=== PATIENT | female | born 1935 | race Caucasian/White ===

== ENCOUNTER 2017-11-03 21:47 | Observation (INO) ==
--- NOTE | 2017-11-03 22:05 | Emergency Department Note ---
Disposition Clinical Impression: Dementia, Altered mental status Disposition: Transfer Short-Term Hosp Condition: Fair Referrals: Dionne Rios, SUPERVISOR [employer] [Primary Care Provider] - Forms: ED Satisfaction Letter, Work/School Release Time of Disposition: 22:55 ( will admit) General Adult HPI - General Chief complaint: ED General Medical Stated complaint: "INCREASED CONFUSION" Time Seen by Provider: 11/03/17 21:52 Source: family Mode of arrival: ambulatory Limitations: no limitations Nursing Notes Reviewed: Yes Vital Signs Reviewed: Yes - History of Present Illness HPI Narrative: 82-year-old female with history of Alzheimer's dementia, was brought in via private car. Patient apparently was found outside wandering around the streets by the Police Department. Her granddaughter reports that patient normally lives by herself, does not have anyone to be able to sit that her. She apparently last night again had episode where she was wandering outside, and the police had to be called patient has refused to take her medications and cholesterol all her medications away. Onset (ago): day(s) (2 days) Radiation: non-radiation Pain Scale: 0 Consistency: constant Improves with: nothing Worsens with: nothing - Related Data Allergies Allergy/AdvReac Type Severity Reaction Status Date / Time Penicillins [PCN] Allergy Anaphylaxis Verified 04/13/16 21:20 Limitations: ROS unobtainable due to patients medical condition (Patient has underlying Alzheimer's dementia) Past Medical History - Past Medical History Medical history: Reports: CVA, other Surgical history: Reports: appendectomy, breast surgery, cholecystectomy, hysterectomy Psychiatric history: Reports: anxiety - Social History Smoking Status: Never smoker Smokeless Tobacco Status: No Alcohol use: Reports: none Drug use: Reports: none Physical Exam - General Limitations: no limitations General appearance: alert, in no apparent distress - Head Head exam: atraumatic, normocephalic, normal inspection - Eye Eye exam: Present: normal appearance, PERRL, EOMI - Expanded Eye Exam Pupils: Left: reactive - ENT ENT exam: normal exam, normal oropharynx, mucous membranes moist - Expanded ENT Exam External ear exam: Present: normal external inspection Mouth exam: Present: normal external inspection Teeth exam: Present: normal inspection Throat exam: Present: normal inspection - Neck Neck exam: Present: normal inspection, full ROM, trachea midline - Chest Chest inspection: Present: normal inspection, symmetric chest wall rise - Respiratory Respiratory exam: Present: normal lung sounds bilaterally - Cardiovascular Cardiovascular exam: Present: regular rate, normal rhythm, normal heart sounds - Abdominal Exam Abdominal exam: Present: soft, Non-Tender. Absent: tenderness, distention, guarding, rebound, rigidity - Extremities Exam Extremities exam: Present: normal inspection, full ROM. Absent: tenderness, pedal edema - Expanded Upper Extremity Exam Shoulder exam: Present: normal inspection, full ROM Arm exam: Present: normal inspection, full ROM Elbow exam: Present: normal inspection, full ROM Forearm/Wrist exam: Present: normal inspection, full ROM Hand exam: Present: normal inspection, full ROM Vascular exam: Normal: capillary refill, radial pulse - Expanded Lower Extremity Exam Hip/Pelvis exam: Present: normal inspection, full ROM Upper leg exam: Present: normal inspection, full ROM Knee exam: Present: normal inspection, full ROM Lower leg exam: Present: normal inspection, full ROM Ankle exam: Present: normal inspection, full ROM Foot/toe exam: Present: normal inspection, full ROM Neurovascular/Tendon exam: Absent: motor deficit, sensory deficit, tendon deficit - Back Exam Back exam: Present: normal inspection, full ROM. Absent: tenderness - Neurological Exam Neurological exam: Present: alert, other (Patient will laugh and small but really is not able to answer questions appropriately.) - Expanded Neurological Exam Patient oriented to: Present: person, place, time Coma Scale Eye Opening: Spontaneous Coma Scale Motor Response: Obeys Commands Coma Scale Verbal Response: Oriented Coma Scale Total: 15 - Psychiatric Psychiatric exam: Present: normal affect, normal mood - Skin Skin exam: Present: warm, dry, intact, normal color Course Vital Signs Temperature 97.8 F 11/03/17 21:50 Pulse Rate 76 11/03/17 21:50 Respiratory Rate 16 11/03/17 21:50 Blood Pressure 165/72 11/03/17 21:50 O2 Sat by Pulse Oximetry 97 11/03/17 21:50 Temperature 97.8 F 11/03/17 21:50 Pulse Rate 75 11/03/17 23:00 Respiratory Rate 18 11/03/17 23:00 Blood Pressure 169/74 11/03/17 23:00 O2 Sat by Pulse Oximetry 97 11/03/17 23:00 Oxygen Delivery Oxygen Delivery Room Air Medical Decision Making - MDM Narrative Medical decision making narrative: Labs obtained, IV normal saline started, CT of head without contrast urine analysis chest x-ray was also obtained - Medical Records Medical records reviewed: Yes I reviewed the patient's medical records. - Lab Data Lab results reviewed: Yes I reviewed the patient's lab results. Result diagrams: 11/03/17 22:06 11/03/17 22:06 Lab Results 11/03/17 11/03/17 11/03/17 Range/Units 22:06 22:06 22:06 WBC 4.6 (4.3-11.1) K/mcL RBC 4.05 (3.82-4.97) M/mcL Hgb 12.5 (11.5-15.4) g/dL Hct 38.0 (35.3-44.9) % MCV 93.8 (83.0-100.0) fL MCH 30.9 (28.0-33.3) pg MCHC 32.9 (31.6-35.5) g/dL RDW 11.9 (11.5-14.5) % Plt Count 235 (140-400) K/mcL MPV 9.6 (9.4-12.4) fL Immature Gran % 0.2 (0-4) % Seg Neutrophils % 52.0 % Lymphocytes % 30.0 % Monocytes % 12.7 % Eosinophils % 4.2 % Basophils % 0.9 % Neutrophils # 2.4 (1.6-8.9) K/mcL Lymphocytes # 1.4 (0.6-4.6) K/mcL Monocytes # 0.6 (0.0-1.3) K/mcL Eosinophils # 0.2 (0.0-0.6) K/mcL Basophils # 0.0 (0.0-0.2) K/mcL PT 11.3 (9.4-12.1) Seconds INR 1.1 APTT 24.4 L (26.0-36.0) Seconds Sample Site ABG pH (7.32-7.45) pH Units ABG pCO2 (35-45) mmHg ABG pO2 (85-104) mmHg ABG HCO3 (21-27) mEq/L ABG Total CO2 (20-26) mEq/L ABG O2 Saturation (95-98) % ABG Base Excess (-2 to 3) mEq/L Inspired O2 (1-15=lpm mt84-238=%) Sodium 138 (136-145) mEq/L Potassium 3.9 (3.5-5.1) mEq/L Chloride 103 (98-107) mEq/L Carbon Dioxide 31 H (23-29) mEq/L BUN 26 H (8-23) mg/dL Creatinine 0.89 (0.60-1.20) mg/dL Est GFR ( Amer) > 60 (> 60) Est GFR (Non-Af Amer) > 60 (> 60) BUN/Creatinine Ratio 29 H (6-26) Glucose 112 H (70-105) mg/dL Calculated Osmolality 292 (280-300) Calcium 10.3 (8.6-10.3) mg/dL Total Bilirubin 0.3 (0.3-1.0) mg/dL Direct Bilirubin 0.0 (0.0-0.2) mg/dL Indirect Bilirubin 0.3 (0.0-1.2) mg/dL AST 11 L (13-39) Units/L ALT 5 L (7-52) Units/L Alkaline Phosphatase 63 (34-104) Units/L Ammonia (16-53) mcmol/L Troponin I < 0.03 (< 0.04) ng/mL Serum Total Protein 6.9 (6.4-8.9) g/dL Albumin 4.1 (3.5-5.7) g/dL Globulin 2.8 (2.4-3.5) g/dL Albumin/Globulin Ratio 1.5 (1.1-2.2) TSH 2.177 (0.340-5.600) mcIU/mL Urine Color (Yellow) Urine Clarity (Clear) Urine pH (5.0-8.0) pH Units Ur Specific [place] (1.010-1.025) Urine Protein (Neg-Trace) mg/dL Urine Glucose (UA) (Normal) mg/dL Urine Ketones (Negative) mg/dL Urine Blood (Negative) Urine Nitrite (Negative) Urine Bilirubin (Negative) Urine Urobilinogen (Normal) mg/dL Ur Leukocyte Esterase (Negative) Urine Microscopic RBC (0-3) per hpf Ur Culture Indicated? (NO) Ethyl Alcohol < 10 (Less than 10) mg/dL 11/03/17 11/03/17 11/03/17 Range/Units 22:06 22:47 22:50 WBC (4.3-11.1) K/mcL RBC (3.82-4.97) M/mcL Hgb (11.5-15.4) g/dL Hct (35.3-44.9) % MCV (83.0-100.0) fL MCH (28.0-33.3) pg MCHC (31.6-35.5) g/dL RDW (11.5-14.5) % Plt Count (140-400) K/mcL MPV (9.4-12.4) fL Immature Gran % (0-4) % Seg Neutrophils % % Lymphocytes % % Monocytes % % Eosinophils % % Basophils % % Neutrophils # (1.6-8.9) K/mcL Lymphocytes # (0.6-4.6) K/mcL Monocytes # (0.0-1.3) K/mcL Eosinophils # (0.0-0.6) K/mcL Basophils # (0.0-0.2) K/mcL PT (9.4-12.1) Seconds INR APTT (26.0-36.0) Seconds Sample Site R Brach ABG pH 7.38 (7.32-7.45) pH Units ABG pCO2 48 H (35-45) mmHg ABG pO2 79 L (85-104) mmHg ABG HCO3 28 H (21-27) mEq/L ABG Total CO2 30 H (20-26) mEq/L ABG O2 Saturation 95 (95-98) % ABG Base Excess 3 (-2 to 3) mEq/L Inspired O2 21.0 (1-15=lpm [id number]=%) Sodium (136-145) mEq/L Potassium (3.5-5.1) mEq/L Chloride (98-107) mEq/L Carbon Dioxide (23-29) mEq/L BUN (8-23) mg/dL Creatinine (0.60-1.20) mg/dL Est GFR ( Amer) (> 60) Est GFR (Non-Af Amer) (> 60) BUN/Creatinine Ratio (6-26) Glucose (70-105) mg/dL Calculated Osmolality (280-300) Calcium (8.6-10.3) mg/dL Total Bilirubin (0.3-1.0) mg/dL Direct Bilirubin (0.0-0.2) mg/dL Indirect Bilirubin (0.0-1.2) mg/dL AST (13-39) Units/L ALT (7-52) Units/L Alkaline Phosphatase (34-104) Units/L Ammonia 33 (16-53) mcmol/L Troponin I (< 0.04) ng/mL Serum Total Protein (6.4-8.9) g/dL Albumin (3.5-5.7) g/dL Globulin (2.4-3.5) g/dL Albumin/Globulin Ratio (1.1-2.2) TSH (0.340-5.600) mcIU/mL Urine Color Yellow (Yellow) Urine Clarity Clear (Clear) Urine pH 5.0 (5.0-8.0) pH Units Ur Specific [place] 1.025 (1.010-1.025) Urine Protein Negative (Neg-Trace) mg/dL Urine Glucose (UA) Normal (Normal) mg/dL Urine Ketones Negative (Negative) mg/dL Urine Blood Trace-intact H (Negative) Urine Nitrite Negative (Negative) Urine Bilirubin Negative (Negative) Urine Urobilinogen Normal (Normal) mg/dL Ur Leukocyte Esterase Negative (Negative) Urine Microscopic RBC 3-5 H (0-3) per hpf Ur Culture Indicated? NO (NO) Ethyl Alcohol (Less than 10) mg/dL - Radiology Data Radiology results reviewed: Yes I reviewed the patient's radiology results. CT of head without contrast per radiology reading shows chronic changes nothing acute chest x-ray shows no acute abnormality
[2017-11-03 22:18] LABS: Basophils % 0.9 %; Eosinophils # 0.2 K/mcL (0.0-0.6); Eosinophils % 4.2 %; Hemoglobin 12.5 g/dL (11.5-15.4); Immature Granulocytes % 0.2 % (0-4); Lymphocytes # 1.4 K/mcL (0.6-4.6); Mean Corpuscular HGB Conc 32.9 g/dL (31.6-35.5); Mean Corpuscular Hemoglobin 30.9 pg (28.0-33.3); Mean Corpuscular Volume 93.8 fL (83.0-100.0); Mean Platelet Volume 9.6 fL (9.4-12.4); Monocytes # 0.6 K/mcL (0.0-1.3); Monocytes % 12.7 %; Neutrophils # 2.4 K/mcL (1.6-8.9); Platelet Count 235 K/mcL (140-400); Red Blood Count 4.05 M/mcL (3.82-4.97); Red Cell Distribution Width 11.9 % (11.5-14.5)
[2017-11-03 22:27] LABS: INR 1.1
[2017-11-03 22:29] LABS: Activated Partial Thrombo Time 24.4 Seconds (26.0-36.0)
[2017-11-03 22:31] LABS: Prothrombin Time 11.3 Seconds (9.4-12.1)
[2017-11-03 22:38] LABS: Alanine Aminotransferase 5 Units/L (7-52); Albumin 4.1 g/dL (3.5-5.7); Albumin/Globulin Ratio 1.5 (1.1-2.2); Alkaline Phosphatase 63 Units/L (34-104); Aspartate Amino Transferase 11 Units/L (13-39); BUN/Creatinine Ratio 29 (6-26); Bilirubin,Indirect 0.3 mg/dL (0.0-1.2); Bilirubin,Total 0.3 mg/dL (0.3-1.0); Blood Urea Nitrogen 26 mg/dL (8-23); Calcium 10.3 mg/dL (8.6-10.3); Carbon Dioxide 31 mEq/L (23-29); Chloride 103 mEq/L (98-107); Ethanol < 10 mg/dL (Less than 10); Globulin 2.8 g/dL (2.4-3.5); Glucose 112 mg/dL (70-105); Osmolality,Calculated 292 (280-300); Potassium 3.9 mEq/L (3.5-5.1); Sodium 138 mEq/L (136-145); Total Protein 6.9 g/dL (6.4-8.9); Troponin I < 0.03 ng/mL (< 0.04); eGFR For African Americans > 60 (> 60); eGFR For Non-African Americans > 60 (> 60)
[2017-11-03 22:51] LABS: ABG Base Excess 3 mEq/L (-2 to 3); ABG HCO3 28 mEq/L (21-27); ABG Oxygen Saturation 95 % (95-98); ABG PCO2 48 mmHg (35-45); ABG PH 7.38 pH Units (7.32-7.45); ABG PO2 79 mmHg (85-104); ABG TCO2 30 mEq/L (20-26)
[2017-11-03 22:52] LABS: Thyroid Stimulating Hormone 2.177 mcIU/mL (0.340-5.600)
[2017-11-03 23:00] LABS: Bilirubin,Urine Negative (Negative); Blood,Urine Trace-intact (Negative); Clarity,Urine Clear (Clear); Color,Urine Yellow (Yellow); Glucose,Urine (UA) Normal (Normal); Ketones,Urine Negative (Negative); Leukocyte Esterase,Urine Negative (Negative); Nitrite,Urine Negative (Negative); Protein,Urine Negative (Neg-Trace); Specific Gravity,Urine 1.025 (1.010-1.025); Urobilinogen,Urine Normal (Normal)
[2017-11-03 23:12] LABS: Amphetamine Screen,Urine Negative ng/mL (Cutoff=1000); Barbiturate Screen,Urine Negative ng/mL (Cutoff=200); Benzodiazepines Screen,Urine Negative ng/mL (Cutoff=200); Cannabinoid Screen,Urine Negative ng/mL (Cutoff = 50); Cocaine Screen,Urine Negative ng/mL (Cutoff= 300); Opiate Screen,Urine Negative ng/mL (Cutoff=300); Phencyclidine Screen,Urine Negative ng/mL (Cutoff=25)
[2017-11-04] MEDS ORDERED: Naloxone 0.4 MG/ML INJ IVP PRN
--- NOTE | 2017-11-04 10:17 | Internal Med History&Physical ---
Date of Encounter: 11/04/17 Time of Encounter: 09:50 Assessment and Plan (1) Dementia Current visit: Yes Status: Acute She has been placed in observation bed. Social service will continue efforts for SNF secure unit placement. B12 level will be ordered. TSH and head CT unremarkable. Qualifiers: Dementia type: unspecified type Dementia behavioral disturbance: with behavioral disturbance Qualified Code(s): F03.91 - Unspecified dementia with behavioral disturbance (2) Hypertension Current visit: Yes Status: Chronic Will monitor blood pressure and give medications as needed. Qualifiers: Hypertension type: essential hypertension Qualified Code(s): I10 - Essential (primary) hypertension (3) Azotemia Current visit: Yes Status: Acute BUN minimally elevated. Will monitor renal indices periodically. Internal Medicine - H&P: HPI Chief complaint: Confusion Admitted From: Emergency Dept Plans for Post Hospital Care: Home History of present illness: Ms. Arroyo is a 82 year old female who was brought to emergency room after she was found wandering around outdoors late at night. The police arrange for her to be brought to emergency room. She was evaluated and admitted to [facility] floor for ongoing care needs. She has dementia and cannot give any reliable history. I spoke with her granddaughter Maria Del Carmen Wood who supplied the remainder of the history. Patient was diagnosed with dementia in 2009 and has had noticeable worsening in the past 2 years. She has had progressive decreased hygiene and inability to care for self at home. She has refused to take prescribe medication for medical and psychiatric diagnoses. She has refused home health service. Granddaughter (POA ) wishes her to be placed in a secure setting SNF. Past Med Surg Social Fam HX - Past Medical History Medical history: CVA, other Psychiatric history: anxiety - Past Surgical History Surgical History: appendectomy, breast surgery, cholecystectomy, hysterectomy - Social History Smoking Status: Never smoker Smokeless Tobacco Status: No Alcohol use: none Drug use: none Internal Medicine - H&P: Meds 3 Allergy/AdvReac Type Severity Reaction Status Date / Time Penicillins [PCN] Allergy Anaphylaxis Verified 04/13/16 21:20 All Systems PM: A 10-system review of systems was performed and is negative for pertinent findings except as documented above in the HPI. Review of systems: Review of systems obtained from patient's granddaughter Gen.: Her weight has been stable the past few months Cardiovascular: She has history of hypertension but no known MT heart failure angina DVT or pulmonary embolus Respiratory: She is a lifelong nonsmoker and has no known chronic lung disease GI: She has had cholecystectomy. 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 She has not taken Plavix regularly because of advancing dementia. There is no history of seizures. Endocrine: There is no known diabetes thyroid disease or hyperlipidemia Hematology/oncology: She had melanoma resection from her face in 2008 without known recurrence. There has been no other internal malignancies or anemia. Psychiatric: She has history of depression and no anxiety other mental health issues. [place] skeletal: She has DJD but no known gout or other bone joint or muscle disorders. - Constitutional Vitals: Temp Pulse Resp BP Pulse Ox 97.7 F 57 14 147/71 98 11/04/17 10:05 11/04/17 10:05 11/04/17 10:05 11/04/17 10:05 11/04/17 10:05 Exam: Gen.: She is a well-developed well-nourished female lying in bed who appears in no acute distress HEENT: Head is atraumatic and normocephalic. Eyes: EOMI. There is no scleral icterus. Mouth: Mucosa is moist. Neck: Supple and nontender. There is no thyromegaly or adenopathy noted. Heart: Regular without murmurs gallops or ectopics Lungs: No wheezes or crackles are heard. Abdomen: Soft and nontender. No masses or guarding are noted. Extremities: There is no cyanosis edema or clubbing noted. Dorsalis pedis and posttibial pulses are trace to 1+ palpable bilaterally. She has DJD changes of her hands. Neurologic: Mental status: She is awake and pleasant. She does not know her age , date of , location, or past medical history. She has very limited vocabulary and repeats sentences frequently. She correctly names a watch and pen. She cannot do simple money math. Cranial nerves: Smile is symmetric. Forehead wrinkles bilaterally. Tongue protrudes midline. EOMI. Motor: There is no pronator drift. Cerebellar: Finger to nose is intact bilaterally. Skin: She has healed surgical scar on her right face from melanoma resection several years ago. Skin is warm and dry otherwise. Internal Med - H&P Results - Labs CBC & Chem 7: 11/03/17 22:06 11/03/17 22:06
--- NOTE | 2017-11-04 16:13 | Electrocardiograph Report ---
[place] [id number] Test Date: 2017-11-03 Pat Name: Zaria Arroyo Department: [id number] Room: [facility] Gender: F Fiscal Assistant: Louise : 1935 Requested By: Breanna Leonard Order Number: [id number] Reading MD: Ale Brantley Measurements Intervals [place] Rate: 69 P: 78 IA: 168 QRS: -13 QRSD: 103 T: 76 QT: 388 QTc: 407 Interpretive Statements SINUS RHYTHM Electronically Signed On 11-04-2017 16:11:30 EDT by Ale Brantley
[2017-11-05] MEDS: *HR* LORazepam 2 MG/ML VIAL IVP PRN ×2 (03:21→17:33)
[2017-11-05 10:55] VITALS: BP 167/76
--- NOTE | 2017-11-05 15:28 | Internal Med Progress Note ---
Date of Encounter: 11/05/17 Time of Encounter: 15:22 - Assessment and plan (1) Dementia Current Visit: Yes Status: Acute Assessment and plan: November 05. B12 level normal. Will start Seroquel for agitation. Continue Ativan when necessary. Qualifiers: Dementia type: unspecified type Dementia behavioral disturbance: with behavioral disturbance Qualified Code(s): F03.91 - Unspecified dementia with behavioral disturbance (2) Hypertension Current Visit: Yes Status: Chronic Assessment and plan: November 05. Blood pressure shows significant fluctuation. Continue to monitor. Qualifiers: Hypertension type: essential hypertension Qualified Code(s): I10 - Essential (primary) hypertension (3) Azotemia Current Visit: Yes Status: Acute Assessment and plan: November 05. Will monitor renal indices as needed. (4) Vitamin D deficiency Current Visit: Yes Status: Acute Assessment and plan: November 05. Vitamin D level returned low at 23. Will start vitamin D supplementation. - Subjective Interval history: November 05. She became agitated and aggressive toward staff last night. She is sleeping now. - Constitutional Vitals: Temp Pulse Resp BP Pulse Ox 98.3 F 62 16 167/76 99 11/05/17 10:55 11/05/17 10:55 11/05/17 10:55 11/05/17 10:55 11/05/17 10:55 Exam: She is resting comfortably in bed. Heart is regular without murmurs gallops or ectopics. Lungs are clear anteriorly. Reviewed her medications and lab results. Internal Medicine: Result - Labs CBC & Chem 7: 11/03/17 22:06 11/03/17 22:06 - ABG Interpretation ABG results: ABG ABG pH 7.38 pH Units (7.32-7.45) 11/03/17 22:47 ABG pCO2 48 mmHg (35-45) H 11/03/17 22:47 ABG pO2 79 mmHg (85-104) L 11/03/17 22:47 ABG O2 Saturation 95 % (95-98) 11/03/17 22:47 PT/INR, D-dimer PT 11.3 Seconds (9.4-12.1) 11/03/17 22:06 Consult Discharge Plan - Plan Referrals: Dionne Rios, NURSING ASSISTANT [Primary Care Provider] - 1 week
--- NOTE | 2017-11-05 16:19 | Discharge Summary ---
Date of Encounter: 11/05/17 Time of Encounter: 15:22 - Discharge Diagnosis (1) Dementia Priority: Primary Status: Acute Qualifiers: Dementia type: unspecified type Dementia behavioral disturbance: with behavioral disturbance Qualified Code(s): F03.91 - Unspecified dementia with behavioral disturbance (2) Hypertension Priority: Secondary Status: Chronic Qualifiers: Hypertension type: essential hypertension Qualified Code(s): I10 - Essential (primary) hypertension (3) Azotemia Priority: Secondary Status: Acute (4) Vitamin D deficiency Priority: Secondary Status: Chronic Hospital course: Ms. Arroyo is a 82 year old female who was brought to emergency room after she was found wandering around outdoors late at night. The police arrange for her to be brought to emergency room. She was evaluated and admitted to [facility] for ongoing care needs. Initial orders were written by the emergency room physician. I saw her on November 04 and performed a history and physical. She had unremarkable B12, TSH, and head CT. She had agitation and aggression towards staff requiring administration of medication. Social service arranged for transfer to [facility] inpatient psychiatric service. She was transferred the afternoon of 11/05/2017. Family was notified. Vitamin D level returned low at 23 and she was started on supplemental vitamin D. - Time Spent with Patient Total time spent providing and/or coordinating discharge services: - Discharge Medications Home Medications: Cholecalciferol (D-3) [Vitamin D] 1,000 unit PO DAILY tablet 11/05/17 [Rx] Allergies/Adverse Reactions: 3 Allergy/AdvReac Type Severity Reaction Status Date / Time Penicillins [PCN] Allergy Anaphylaxis Verified 04/13/16 21:20 Date of admission: 11/03/17 23:20 Primary care physician: Dionne Rios CNP Consults: 11/04/17 09:46 Consult to Occupational Therapy [CONS] Routine Comment: Evaluate, develop and implement POC Reason for Consult: Weakness Does patient have active BEDREST order?: No Is patient medically & hemodynamically stable?: Yes Patient assessed for mobility or mobilized this visit?: Yes Consult to Physical Therapy [CONS] DAILY Comment: Evaluate, develop and implement POC Reason for Consult: Weakness Does patient have active BEDREST order?: No Is patient medically & hemodynamically stable?: Yes Patient assessed for mobility or mobilized this visit?: Yes - Constitutional Vitals: Temp Pulse Resp BP Pulse Ox 98.3 F 62 16 167/76 99 11/05/17 10:55 11/05/17 10:55 11/05/17 10:55 11/05/17 10:55 11/05/17 10:55 - Patient Status Disposition: Transfer Other Condition: Fair - Discharge Instructions - Diet and Activity Diet: regular diet
[2017-11-06] MEDS ORDERED: Cholecalciferol (D-3) 1,000 UNIT TABLET PO SCH (09:00)
== END 2017-11-05 18:29 | disposition other institution (70) ==
LOC: EMEROOPIK 21:47 → INPPIK 21:47
PROVIDERS: ADMIT Internal Medicine; ATTEND Internal Medicine

== ENCOUNTER 2019-01-14 13:51 | Inpatient (IN) ==
[2019-01-14] MEDS ORDERED: 0.9 % Sodium Chloride 1,000 ML IVC SCH (14:15)
--- NOTE | 2019-01-14 14:20 | Emergency Department Note ---
Disposition Clinical Impression: Colitis, Fecal impaction in rectum Disposition: Admitted As Inpatient Condition: Fair Time of Disposition: 15:50 Abdominal Pain HPI - General Chief Complaint: ED Abdominal Pain Stated Complaint: RECTAL BLEEDING Time Seen by Provider: 01/14/19 13:55 Source: family Mode of arrival: EMS Limitations: physical limitation, other (pt is non verbal) Nursing Notes Reviewed: Yes Vital Signs Reviewed: Yes - History of Present Illness HPI Narrative: Patient with reported rectal bleeding at the correction. She was recently seen and treated for a UTI. Today the granddaughter went to the bedside at the correction and noticed blood per rectum center transported here. 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 Denies: nausea, vomiting - Related Data Home Medications Medication Instructions Recorded Confirmed Acetaminophen [Tylenol] 650 mg PO Q6HR PRN 01/11/19 01/14/19 Divalproex Sodium [Depakote] 125 mg PO TID 01/11/19 01/14/19 Metoprolol [Lopressor] 25 mg PO BID 01/11/19 01/14/19 clonazePAM [Clonazepam] 0.25 mg PO BID 01/11/19 01/14/19 clonazePAM [Clonazepam] 0.5 mg PO HS 01/11/19 01/14/19 Previous Rx's Medication Instructions Recorded Ciprofloxacin HCl [Cipro] 500 mg PO BID #20 tablet 01/11/19 Allergies Allergy/AdvReac Type Severity Reaction Status Date / Time Penicillins [PCN] Allergy Anaphylaxis Verified 01/11/19 22:57 All systems ED: reviewed and negative except as stated. Review of Systems: As Per HPI Constitutional: Reports: as per HPI, fever. Denies: chills, weakness, weight change Eyes: Denies: eye pain, eye discharge, vision change ENT ED: Denies: ear pain, throat pain, dental pain, hearing loss, epistaxis, congestion, dysphagia Cardiovascular: Denies: chest pain, palpitations, dyspnea on exertion, edema, syncope Respiratory: Denies: cough, dyspnea, wheezes, hemoptysis, stridor Gastrointestinal: Reports: abdominal pain, other (rectal bleeding). Denies: nausea, vomiting, diarrhea, constipation, hematemesis, melena, hematochezia Genitourinary: Denies: dysuria, frequency, hematuria, discharge Musculoskeletal: Denies: back pain, neck pain, arthralgia, myalgia Integumentary: Denies: rash, abrasion, lesions Neurological: Denies: headache, weakness, numbness, paresthesias, confusion, abnormal gait, vertigo Psychiatric: Denies: anxiety, depression, suicidal thoughts, homicidal thoughts, auditory hallucinations, visual hallucinations Endocrine: Denies: fatigue Hematological/Lymphatic: Denies: easy bleeding, easy bruising Allergic/Immunologic: Denies: facial swelling, urticaria Abdominal Pain PMH - Past Medical History Medical history: Reports: CVA, dementia, hypertension, other Female Surgical History: Reports: appendectomy, breast surgery, cholecystectomy, hysterectomy [employer] 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 Psychiatric history: Reports: anxiety - Social History Smoking status: Unknown if ever smoked Alcohol use: Reports: none Drug use: Reports: none Physical Exam - General Limitations: other (non verbal) General appearance: alert - Head Head exam: atraumatic, normocephalic, normal inspection - Eye Eye exam: Present: normal appearance, PERRL, EOMI - ENT ENT exam: normal exam, normal oropharynx, mucous membranes moist - Neck Neck exam: Present: normal inspection, full ROM, trachea midline - Chest Chest inspection: Present: normal inspection, symmetric chest wall rise - Respiratory Respiratory exam: Present: normal lung sounds bilaterally - Cardiovascular Cardiovascular exam: Present: regular rate, normal rhythm, normal heart sounds - Abdominal Exam Abdominal exam: Present: soft, tenderness, normal bowel sounds Abdominal tenderness: Present: mild - Extremities Exam Extremities exam: Present: normal inspection, full ROM. Absent: tenderness, pedal edema - Back Exam Back exam: Present: normal inspection, full ROM. Absent: tenderness - Neurological Exam Neurological exam: Present: alert - Psychiatric Psychiatric exam: Present: normal affect, normal mood - Skin Skin exam: Present: warm, dry, intact, normal color Course Vital Signs Temperature 98.4 F 01/14/19 13:55 Pulse Rate 101 01/14/19 13:55 Respiratory Rate 16 01/14/19 13:55 Blood Pressure 133/67 01/14/19 13:55 O2 Sat by Pulse Oximetry 97 01/14/19 13:55 Temperature 98.4 F 01/14/19 13:55 Pulse Rate 90 01/14/19 16:40 Respiratory Rate 16 01/14/19 16:40 Blood Pressure 121/61 01/14/19 16:40 O2 Sat by Pulse Oximetry 97 01/14/19 16:40 Oxygen Delivery Oxygen Delivery Nasal Cannula Abdominal Pain - MDM Narrative Medical decision making narrative: Case was discussed with Dr. Barksdale who is graciously accepts admission - Lab Data Lab results reviewed: Yes I reviewed the patient's lab results. Result diagrams: 01/14/19 14:40 01/14/19 14:40 Lab Results 01/14/19 01/14/19 01/14/19 Range/Units 14:40 14:40 14:40 WBC 18.0 H (4.3-11.1) K/mcL RBC 4.31 (3.82-4.97) M/mcL Hgb 13.0 D (11.5-15.4) g/dL Hct 42.5 (35.3-44.9) % MCV 98.6 (83.0-100.0) fL MCH 30.2 (28.0-33.3) pg MCHC 30.6 L (31.6-35.5) g/dL RDW 13.5 (11.5-14.5) % Plt Count 204 (140-400) K/mcL MPV 11.4 (9.4-12.4) fL Seg Neutrophils % 80.0 % Band Neutrophils % 8.0 H (0-4) % Lymphocytes % 4.0 % Monocytes % 6.0 % Metamyelocytes % 2.0 H (0) % Neutrophils # 15.8 H (1.6-8.9) K/mcL Lymphocytes # 0.7 (0.6-4.6) K/mcL Monocytes # 1.1 (0.0-1.3) K/mcL Toxic Granulation Present A (Not Present) Dohle Bodies Present A (Not Present) Platelet Estimate Normal (Normal) Polychromasia 1+ A (Not Present) Anisocytosis 1+ A (Not Present) PT 14.7 H (9.4-12.1) Seconds INR 1.3 APTT 29.1 (26.0-36.0) Seconds Sodium 165 H* (136-145) mEq/L Potassium 3.8 (3.5-5.1) mEq/L Chloride 131 H (98-107) mEq/L Carbon Dioxide 26 (23-29) mEq/L BUN 70 H (8-23) mg/dL Creatinine 3.12 H (0.60-1.20) mg/dL Est GFR ( Amer) 17 L (> 60) Est GFR (Non-Af Amer) 14 L (> 60) BUN/Creatinine Ratio 22 (6-26) Glucose 72 (70-105) mg/dL Calculated Osmolality 359 H (280-300) Lactic Acid (0.5-2.2) mmol/L Calcium 10.1 (8.6-10.3) mg/dL Total Bilirubin 0.3 (0.3-1.0) mg/dL AST 15 (13-39) Units/L ALT 7 (7-52) Units/L Alkaline Phosphatase 92 (34-104) Units/L Serum Total Protein 6.9 (6.4-8.9) g/dL Albumin 3.1 L (3.5-5.7) g/dL Globulin 3.8 H (2.4-3.5) g/dL Albumin/Globulin Ratio 0.8 L (1.1-2.2) Urine Color (Yellow) Urine Clarity (Clear) Urine pH (5.0-8.0) pH Units Ur Specific [place] (1.010-1.025) Urine Protein (Neg-Trace) mg/dL Urine Glucose (UA) (Normal) mg/dL Urine Ketones (Negative) mg/dL Urine Blood (Negative) Urine Nitrite (Negative) Urine Bilirubin (Negative) Urine Urobilinogen (Normal) mg/dL Ur Leukocyte Esterase (Negative) Urine Microscopic RBC (0-3) per hpf Urine Microscopic WBC (0-3) per hpf Ur Squamous Epith Cells (None-Few) per lpf Urine Bacteria (None-Few) per hpf Urine Mucus (Few) Ur Culture Indicated? (NO) 01/14/19 01/14/19 Range/Units 14:40 14:53 WBC (4.3-11.1) K/mcL RBC (3.82-4.97) M/mcL Hgb (11.5-15.4) g/dL Hct (35.3-44.9) % MCV (83.0-100.0) fL MCH (28.0-33.3) pg MCHC (31.6-35.5) g/dL RDW (11.5-14.5) % Plt Count (140-400) K/mcL MPV (9.4-12.4) fL Seg Neutrophils % % Band Neutrophils % (0-4) % Lymphocytes % % Monocytes % % Metamyelocytes % (0) % Neutrophils # (1.6-8.9) K/mcL Lymphocytes # (0.6-4.6) K/mcL Monocytes # (0.0-1.3) K/mcL Toxic Granulation (Not Present) Dohle Bodies (Not Present) Platelet Estimate (Normal) Polychromasia (Not Present) Anisocytosis (Not Present) PT (9.4-12.1) Seconds INR APTT (26.0-36.0) Seconds Sodium (136-145) mEq/L Potassium (3.5-5.1) mEq/L Chloride (98-107) mEq/L Carbon Dioxide (23-29) mEq/L BUN (8-23) mg/dL Creatinine (0.60-1.20) mg/dL Est GFR ( Amer) (> 60) Est GFR (Non-Af Amer) (> 60) BUN/Creatinine Ratio (6-26) Glucose (70-105) mg/dL Calculated Osmolality (280-300) Lactic Acid 1.9 (0.5-2.2) mmol/L Calcium (8.6-10.3) mg/dL Total Bilirubin (0.3-1.0) mg/dL AST (13-39) Units/L ALT (7-52) Units/L Alkaline Phosphatase (34-104) Units/L Serum Total Protein (6.4-8.9) g/dL Albumin (3.5-5.7) g/dL Globulin (2.4-3.5) g/dL Albumin/Globulin Ratio (1.1-2.2) Urine Color Yellow (Yellow) Urine Clarity Clear (Clear) Urine pH 5.0 (5.0-8.0) pH Units Ur Specific [place] 1.010 (1.010-1.025) Urine Protein Trace (Neg-Trace) mg/dL Urine Glucose (UA) 250 H (Normal) mg/dL Urine Ketones Negative (Negative) mg/dL Urine Blood Negative (Negative) Urine Nitrite Negative (Negative) Urine Bilirubin Negative (Negative) Urine Urobilinogen Normal (Normal) mg/dL Ur Leukocyte Esterase Trace H (Negative) Urine Microscopic RBC 0-3 (0-3) per hpf Urine Microscopic WBC 3-5 H (0-3) per hpf Ur Squamous Epith Cells Few (None-Few) per lpf Urine Bacteria Few (None-Few) per hpf Urine Mucus Few (Few) Ur Culture Indicated? YES A (NO) - Radiology Data Radiology results reviewed: Yes I reviewed the patient's radiology results.
[2019-01-14 14:47] LABS: Hematocrit 42.5 % (35.3-44.9); Mean Corpuscular HGB Conc 30.6 g/dL (31.6-35.5); Mean Corpuscular Hemoglobin 30.2 pg (28.0-33.3); Mean Corpuscular Volume 98.6 fL (83.0-100.0); Mean Platelet Volume 11.4 fL (9.4-12.4); Platelet Count 204 K/mcL (140-400); Red Blood Count 4.31 M/mcL (3.82-4.97); Red Cell Distribution Width 13.5 % (11.5-14.5)
[2019-01-14 14:55] LABS: INR 1.3; Prothrombin Time 14.7 Seconds (9.4-12.1)
[2019-01-14 14:57] LABS: Activated Partial Thrombo Time 29.1 Seconds (26.0-36.0)
[2019-01-14 15:03] LABS: Bilirubin,Urine Negative (Negative); Blood,Urine Negative (Negative); Clarity,Urine Clear (Clear); Color,Urine Yellow (Yellow); Glucose,Urine (UA) 250 mg/dL (Normal); Ketones,Urine Negative (Negative); Leukocyte Esterase,Urine Trace (Negative); Nitrite,Urine Negative (Negative); Protein,Urine Trace mg/dL (Neg-Trace); Urobilinogen,Urine Normal (Normal)
[2019-01-14 15:10] LABS: Bacteria,Urine Few per hpf (None-Few); Mucus,Urine Few (Few); RBC,Urine 0-3 per hpf (0-3); Squamous Epithelial Cell,Urine Few per lpf (None-Few)
[2019-01-14 15:10] LABS: Albumin 3.1 g/dL (3.5-5.7); Albumin/Globulin Ratio 0.8 (1.1-2.2); Bilirubin,Total 0.3 mg/dL (0.3-1.0); Calcium 10.1 mg/dL (8.6-10.3); Globulin 3.8 g/dL (2.4-3.5); Potassium 3.8 mEq/L (3.5-5.1); Total Protein 6.9 g/dL (6.4-8.9)
[2019-01-14 15:18] LABS: Anisocytosis 1+ (Not Present); Dohle Bodies Present (Not Present); Lymphocytes # 0.7 K/mcL (0.6-4.6); Monocytes # 1.1 K/mcL (0.0-1.3); Neutrophils # 15.8 K/mcL (1.6-8.9); Platelet Estimate Normal (Normal); Polychromasia 1+ (Not Present); Toxic Granulation Present (Not Present)
[2019-01-14] MEDS ORDERED: MetroNIDAZOLE 500 MG/100 ML 500 MG/100 ML BAG IVPB ONE (15:46)
[2019-01-14] MEDS ORDERED: Naloxone 0.4 MG/ML INJ IVP PRN (19:40)
[2019-01-14] MEDS: Divalproex Sodium 125 MG CAPSULE PO SCH (21:22)
[2019-01-14] MEDS: 0.9 % Sodium Chloride 1,000 ML IVC SCH ×2 (21:22→22:32)
[2019-01-14] MEDS: clonazePAM 0.5 MG TABLET PO SCH (21:23)
[2019-01-15] MEDS ORDERED: MetroNIDAZOLE 500 MG/100 ML 500 MG/100 ML BAG IVPB SCH
[2019-01-15] MEDS: MetroNIDAZOLE 500 MG/100 ML 500 MG/100 ML BAG IVPB SCH ×3 (00:40→17:03)
[2019-01-15] MEDS: 0.9 % Sodium Chloride 1,000 ML IVC SCH ×2 (04:55→09:03)
[2019-01-15 07:59] LABS: Basophils # 0.1 K/mcL (0.0-0.2); Basophils % 0.4 %; Eosinophils # 0.1 K/mcL (0.0-0.6); Eosinophils % 0.4 %; Hematocrit 35.8 % (35.3-44.9); Hemoglobin 10.8 g/dL (11.5-15.4); Immature Granulocytes % 0.5 % (0-4); Lymphocytes # 1.1 K/mcL (0.6-4.6); Lymphocytes % 8.1 %; Mean Corpuscular HGB Conc 30.2 g/dL (31.6-35.5); Mean Corpuscular Hemoglobin 30.2 pg (28.0-33.3); Mean Platelet Volume 11.7 fL (9.4-12.4); Monocytes % 6.9 %; Neutrophils # 11.7 K/mcL (1.6-8.9); Platelet Count 150 K/mcL (140-400); Red Blood Count 3.58 M/mcL (3.82-4.97); Red Cell Distribution Width 13.8 % (11.5-14.5); Segmented Neutrophils % 83.7 %
[2019-01-15] MEDS: Divalproex Sodium 125 MG CAPSULE PO SCH ×3 (09:03→20:41)
[2019-01-15] MEDS: clonazePAM 0.5 MG TABLET PO SCH ×3 (09:05→20:41)
[2019-01-15 09:33] LABS: Anisocytosis 1+ (Not Present); Platelet Estimate Normal (Normal); Polychromasia 1+ (Not Present); Toxic Granulation Present (Not Present)
[2019-01-15 09:36] LABS: Potassium 3.9 mEq/L (3.5-5.1)
[2019-01-15] MEDS ORDERED: *HR* Dextrose 50 % in Water (Vial) 50 ML VIAL ONE (09:39)
[2019-01-15] MEDS ORDERED: *HR* Dextrose 50 % in Water (Vial) 50 ML VIAL IVP PRN (09:45)
--- NOTE | 2019-01-15 11:40 | Internal Med History&Physical ---
Date of Encounter: 01/15/19 Time of Encounter: 11:15 Assessment and Plan (1) Acute renal failure Current visit: Yes Status: Acute Possibly multifactorial etiology including dehydration and bladder outlet obstruction. Alexandre catheter has been inserted. IV fluids have been ordered. Qualifiers: Acute renal failure type: unspecified Qualified Code(s): N17.9 - Acute kidney failure, unspecified (2) Bladder outlet obstruction Current visit: Yes Status: Acute Alexandre catheter has been inserted. Urine output will be monitored. (3) Anemia Current visit: Yes Status: Acute Hemoglobin has decreased to 10.8 today. Anemia testing will be ordered Qualifiers: Anemia type: unspecified type Qualified Code(s): D64.9 - Anemia, unspecified (4) Neutrophilic leukocytosis Current visit: Yes Status: Acute WBC was 18.0 in emergency room with 80% segs and 8% bands. IV Flagyl and Cipro have been started. Lactobacillus will be added. (5) Dementia Current visit: No Status: Acute TSH and B12 levels were normal November 2017. Qualifiers: Dementia type: Alzheimer's disease Alzheimer's disease onset: unspecified onset Dementia behavioral disturbance: without behavioral disturbance Qualified Code(s): G30.9 - Alzheimer's disease, unspecified; F02.80 - Dementia in other diseases classified elsewhere without behavioral disturbance (6) Hypertension Current visit: No Status: Chronic Continue Lopressor 25 mg twice a day. Qualifiers: Hypertension type: essential hypertension Qualified Code(s): I10 - Essential (primary) hypertension (7) Hypernatremia Current visit: No Status: Acute Likely secondary to dehydration. IV fluids have been ordered. Recheck labs in a.m. (8) Colitis Current visit: Yes Status: Acute Enema will be given for disimpaction. IV antibiotics have been started. (9) Fecal impaction in rectum Current visit: Yes Status: Acute As above Internal Medicine - H&P: HPI Chief complaint: Rectal bleeding, possible abdominal pain Admitted From: Emergency Dept Plans for Post Hospital Care: Home History of present illness: Ms. Arroyo is a 83 year old female who was brought to emergency room from a SNF after family noted rectal bleeding. She was evaluated in emergency room and appeared to have abdominal discomfort. Abdominal/pelvic CT showed fecal impaction with a large amount of retained rectal stool with wall thickening and adjacent inflammatory changes concerning for stercoral colitis. There was bilateral hydronephrosis and hydroureter with moderate bladder distention suggesting bladder outlet obstruction. A Alexandre catheter was inserted and she was admitted to [facility] floor for ongoing care needs. She has dementia and is nonverbal. Past Med Surg Social Fam HX - Past Medical History Medical history: CVA, dementia, hypertension, other Additional medical history: dementia with behaviors, DIVERTICULITIS Psychiatric history: anxiety - Past Surgical History Surgical History: appendectomy, breast surgery, cholecystectomy, hysterectomy - Social History Smoking Status: Unknown if ever smoked Smokeless Tobacco Status: No Alcohol use: none Drug use: none Internal Medicine - H&P: Meds Acetaminophen [Tylenol] 650 mg PO Q6HR PRN 01/11/19 [History] Ciprofloxacin HCl [Cipro] 500 mg PO BID #20 tablet 01/11/19 [Rx] Divalproex Sodium [Depakote] 125 mg PO TID 01/11/19 [History] Metoprolol [Lopressor] 25 mg PO BID 01/11/19 [History] clonazePAM [Clonazepam] 0.25 mg PO BID 01/11/19 [History] clonazePAM [Clonazepam] 0.5 mg PO HS 01/11/19 [History] Allergy/AdvReac Type Severity Reaction Status Date / Time Penicillins [PCN] Allergy Anaphylaxis Verified 01/11/19 22:57 All Systems PM: A 10-system review of systems was performed and is negative for pertinent findings except as documented above in the HPI. Review of systems: Review of systems obtained from patient's granddaughter at the November 2017 [facility] hospitalization were reviewed and revised as below. Gen.: Her weight has decreased from 60.044 kg on 11/04/2017 to present weight of 56.699 kg Cardiovascular: She has history of hypertension but no known [place] heart failure angina DVT or pulmonary embolus Respiratory: She is a lifelong nonsmoker and has no known chronic lung disease GI: She has had cholecystectomy. 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 She has dementia. There is no history of seizures. Endocrine: There is no known diabetes thyroid disease or hyperlipidemia Hematology/oncology: She had melanoma resection from her face in 2008 without known recurrence. There has been no other internal malignancies or anemia. Psychiatric: She has history of depression . She was transferred from [facility] to [facility] November 2017 for inpatient psychiatric care. [place] skeletal: She has DJD but no known gout or other bone joint or muscle disorders. - Constitutional Vitals: Temp Pulse Resp BP Pulse Ox 97.4 F L 72 17 118/60 100 01/15/19 10:59 01/15/19 10:59 01/15/19 10:59 01/15/19 10:59 01/15/19 10:59 Exam: Gen.: She is a well-developed well-nourished female lying in bed who appears in no acute distress at rest HEENT: Head is atraumatic and normal cephalic. Eyes: She does not open her eyes to request. On manual lifting of her lids her gaze appears conjugate. Mouth: She does not open her mouth for examination. Neck: There is no thyromegaly or adenopathy noted. Heart: Regular without murmurs gallops or ectopics Lungs: No wheezes or crackles are heard. Abdomen: Soft and nontender. No masses or guarding are noted. Bowel sounds are normal active. Extremities: There is no cyanosis edema or clubbing noted. Dorsalis pedis and posterior tibial pulses are trace palpable bilaterally. Neurologic: Mental status: She does not respond meaningfully to voice or light touch. She does not follow commands. Cranial nerves: Her gaze appears conjugate on manual lifting of her eyelids. She has no spontaneous facial movements and does not follow commands. Motor: She has slight cogwheeling and rigidity on passive range of motion of her wrists and elbows. No further neurologic testing is attempted. Skin: Warm and dry Internal Med - H&P Results - Labs CBC & Chem 7: 01/15/19 07:40 01/15/19 07:40 Labs: Short CBC 01/14/19 01/15/19 Range/Units 14:40 07:40 WBC 18.0 H 14.0 H (4.3-11.1) K/mcL Hgb 13.0 D 10.8 L D (11.5-15.4) g/dL Hct 42.5 35.8 (35.3-44.9) % Plt Count 204 150 (140-400) K/mcL Neutrophils # 15.8 H 11.7 H (1.6-8.9) K/mcL BMP 01/14/19 01/15/19 14:40 07:40 Sodium 165 H* 171 H* Potassium 3.8 3.9 Chloride 131 H 139 H Carbon Dioxide 26 25 BUN 70 H 47 H Creatinine 3.12 H 1.38 H Glucose 72 26 L* Calcium 10.1 9.0 Liver Function 01/14/19 Range/Units 14:40 Total Bilirubin 0.3 (0.3-1.0) mg/dL AST 15 (13-39) Units/L ALT 7 (7-52) Units/L Alkaline Phosphatase 92 (34-104) Units/L Albumin 3.1 L (3.5-5.7) g/dL Urine 01/14/19 Range/Units 14:53 Urine Color Yellow (Yellow) Urine Clarity Clear (Clear) Urine pH 5.0 (5.0-8.0) pH Units Ur Specific [place] 1.010 (1.010-1.025) Urine Protein Trace (Neg-Trace) mg/dL Urine Glucose (UA) 250 H (Normal) mg/dL - Impressions ITS Impressions Abdomen/Pelvis CT 01/14/19 14:04 IMPRESSION: 1. Fecal impaction with a large amount of retained rectal stool with wall thickening and adjacent inflammatory changes. The findings are concerning for stercoral colitis. 2. Bilateral hydronephrosis and hydroureter with moderate bladder distension suggesting bladder outlet obstruction or neurogenic bladder. No significant bladder wall thickening. 3. Status post cholecystectomy with prominence of the extrahepatic biliary tree, likely physiologic. 4. Trace bilateral pleural effusions with dependent lower lobe opacification, right greater than left. 5. Status post hysterectomy. D/ / 01/14/2019 14:44:13 Nick Meng MD / blane Interpreting Provider: Nick Meng MD
[2019-01-15] MEDS: Potassium Chloride 20 MEQ in D5% in Water 1,000 ML IVC SCH (11:49)
[2019-01-15] MEDS: Lactobacillus 1 EACH CAP.SPRINK PO SCH (20:41)
[2019-01-16] MEDS: Potassium Chloride 20 MEQ in D5% in Water 1,000 ML IVC SCH ×3 (02:18→18:06)
[2019-01-16] MEDS: MetroNIDAZOLE 500 MG/100 ML 500 MG/100 ML BAG IVPB SCH ×3 (02:18→18:07)
[2019-01-16 07:43] LABS: Basophils % 0.3 %; Eosinophils # 0.5 K/mcL (0.0-0.6); Eosinophils % 5.1 %; Hematocrit 31.4 % (35.3-44.9); Hemoglobin 9.5 g/dL (11.5-15.4); Immature Granulocytes % 0.7 % (0-4); Lymphocytes # 1.2 K/mcL (0.6-4.6); Lymphocytes % 12.7 %; Mean Corpuscular HGB Conc 30.3 g/dL (31.6-35.5); Mean Corpuscular Hemoglobin 30.3 pg (28.0-33.3); Mean Platelet Volume 11.4 fL (9.4-12.4); Monocytes # 0.6 K/mcL (0.0-1.3); Monocytes % 6.2 %; Neutrophils # 7.1 K/mcL (1.6-8.9); Platelet Count 141 K/mcL (140-400); Red Blood Count 3.14 M/mcL (3.82-4.97); White Blood Count 9.4 K/mcL (4.3-11.1)
[2019-01-16 08:25] LABS: BUN/Creatinine Ratio 39 (6-26); Blood Urea Nitrogen 37 mg/dL (8-23); Calcium 8.7 mg/dL (8.6-10.3); Carbon Dioxide 27 mEq/L (23-29); Chloride 133 mEq/L (98-107); Glucose 117 mg/dL (70-105); Osmolality,Calculated 346 (280-300); Potassium 3.9 mEq/L (3.5-5.1); Sodium 163 mEq/L (136-145); eGFR For African Americans > 60 (> 60); eGFR For Non-African Americans 56 (> 60)
[2019-01-16] MEDS: clonazePAM 0.5 MG TABLET PO SCH ×3 (08:37→20:12)
[2019-01-16] MEDS: Divalproex Sodium 125 MG CAPSULE PO SCH ×3 (08:37→20:12)
[2019-01-16] MEDS: Lactobacillus 1 EACH CAP.SPRINK PO SCH ×2 (08:38→20:12)
[2019-01-16] MEDS: Acetaminophen 325 MG TABLET PO PRN ×2 (08:38→15:11)
[2019-01-16 08:51] LABS: Platelet Estimate Normal (Normal)
--- NOTE | 2019-01-16 10:19 | Internal Med Progress Note ---
Date of Encounter: 01/16/19 Time of Encounter: 10:09 - Assessment and plan (1) Acute renal failure Current Visit: Yes Status: Acute Assessment and plan: January 16. BUN and creatinine have significantly improved to 37 and 0.96 resp ectively with estimated GFR 56. Continue present Rx. Qualifiers: Acute renal failure type: unspecified Qualified Code(s): N17.9 - Acute kidney failure, unspecified (2) Bladder outlet obstruction Current Visit: Yes Status: Acute Assessment and plan: January 16. Continue Alexandre catheter. (3) Anemia Current Visit: Yes Status: Acute Assessment and plan: January 16. Anemia testing pending. Hemoglobin has decreased to 9.5. Qualifiers: Anemia type: unspecified type Qualified Code(s): D64.9 - Anemia, unspecified (4) Neutrophilic leukocytosis Current Visit: Yes Status: Acute Assessment and plan: January 16. Resolved. Continue IV Flagyl and Cipro with lactobacillus. (5) Dementia Current Visit: No Status: Acute Assessment and plan: January 16. TSH and B12 levels were normal November 2017. Qualifiers: Dementia type: Alzheimer's disease Alzheimer's disease onset: unspecified onset Dementia behavioral disturbance: without behavioral disturbance Qualified Code(s): G30.9 - Alzheimer's disease, unspecified; F02.80 - Dementia in other diseases classified elsewhere without behavioral disturbance (6) Hypertension Current Visit: No Status: Chronic Assessment and plan: January 16. Continue Lopressor 25 mg twice a day Qualifiers: Hypertension type: essential hypertension Qualified Code(s): I10 - Essential (primary) hypertension (7) Hypernatremia Current Visit: No Status: Acute Assessment and plan: January 16. Sodium is decreased to 163. Continue present Rx. Recheck labs in a.m. (8) Colitis Current Visit: Yes Status: Acute Assessment and plan: January 16. Significant stool output from enema. Continue IV antibiotics. KUB will be ordered. (9) Fecal impaction in rectum Current Visit: Yes Status: Acute Assessment and plan: January 16. As above - Subjective Interval history: January 16. No new problems have arisen. - Constitutional Vitals: Temp Pulse Resp BP Pulse Ox 96.5 F L 72 16 103/56 100 01/16/19 06:21 01/16/19 06:21 01/16/19 06:21 01/16/19 06:21 01/16/19 06:21 Exam: She is lying comfortably in bed and appears in no acute distress. She is sleeping and does not arouse to voice or light touch. I reviewed her medica tions and lab results. Internal Medicine: Result - Labs CBC & Chem 7: 01/16/19 07:32 01/16/19 07:32 Labs: Short CBC 01/16/19 Range/Units 07:32 WBC 9.4 (4.3-11.1) K/mcL Hgb 9.5 L (11.5-15.4) g/dL Hct 31.4 L (35.3-44.9) % Plt Count 141 (140-400) K/mcL Neutrophils # 7.1 (1.6-8.9) K/mcL BMP 01/16/19 07:32 Sodium 163 H* Potassium 3.9 Chloride 133 H Carbon Dioxide 27 BUN 37 H Creatinine 0.96 Glucose 117 H Calcium 8.7 - ABG Interpretation ABG results: PT/INR, D-dimer PT 14.7 Seconds (9.4-12.1) H 01/14/19 14:40 - Impressions Impressions Abdomen/Pelvis CT 01/14/19 14:04 IMPRESSION: 1. Fecal impaction with a large amount of retained rectal stool with wall thickening and adjacent inflammatory changes. The findings are concerning for stercoral colitis. 2. Bilateral hydronephrosis and hydroureter with moderate bladder distension suggesting bladder outlet obstruction or neurogenic bladder. No significant bladder wall thickening. 3. Status post cholecystectomy with prominence of the extrahepatic biliary tree, likely physiologic. 4. Trace bilateral pleural effusions with dependent lower lobe opacification, right greater than left. 5. Status post hysterectomy. D/ / 01/14/2019 14:44:13 Nick Meng MD / blane Interpreting Provider: Nick Meng MD Consult Discharge Plan - Plan Referrals: Nick Moffett MD [Primary Care Provider] - 1 week
[2019-01-16 12:59] LABS: % Iron Saturation 35 % (15-50); Ferritin 773 ng/mL (10-120); Iron 37 mcg/dL (50-170); Transferrin 76 mg/dL (203-362)
[2019-01-16 13:05] LABS: Folate 17.8 ng/mL (3.0-16.0)
[2019-01-17] MEDS: MetroNIDAZOLE 500 MG/100 ML 500 MG/100 ML BAG IVPB SCH ×2 (01:07→10:22)
[2019-01-17] MEDS: Potassium Chloride 20 MEQ in D5% in Water 1,000 ML IVC SCH ×3 (05:50→23:34)
[2019-01-17 07:43] LABS: Basophils # 0.1 K/mcL (0.0-0.2); Basophils % 0.8 %; Eosinophils # 0.4 K/mcL (0.0-0.6); Eosinophils % 5.8 %; Hematocrit 35.3 % (35.3-44.9); Hemoglobin 10.5 g/dL (11.5-15.4); Immature Granulocytes % 1.3 % (0-4); Lymphocytes # 1.2 K/mcL (0.6-4.6); Lymphocytes % 15.7 %; Mean Corpuscular HGB Conc 29.7 g/dL (31.6-35.5); Mean Corpuscular Volume 100.9 fL (83.0-100.0); Monocytes # 0.5 K/mcL (0.0-1.3); Monocytes % 6.2 %; Neutrophils # 5.2 K/mcL (1.6-8.9); Platelet Count 159 K/mcL (140-400); Red Cell Distribution Width 13.7 % (11.5-14.5); Segmented Neutrophils % 70.2 %; White Blood Count 7.4 K/mcL (4.3-11.1)
[2019-01-17 08:33] LABS: BUN/Creatinine Ratio 42 (6-26); Blood Urea Nitrogen 31 mg/dL (8-23); Calcium 8.6 mg/dL (8.6-10.3); Carbon Dioxide 21 mEq/L (23-29); Chloride 126 mEq/L (98-107); Glucose 131 mg/dL (70-105); Osmolality,Calculated 324 (280-300); Potassium 4.1 mEq/L (3.5-5.1); Sodium 153 mEq/L (136-145); eGFR For African Americans > 60 (> 60); eGFR For Non-African Americans > 60 (> 60)
--- NOTE | 2019-01-17 09:41 | Internal Med Progress Note ---
Date of Encounter: 01/17/19 Time of Encounter: 09:34 - Assessment and plan (1) Acute renal failure Current Visit: Yes Status: Acute Assessment and plan: January 16. BUN and creatinine have significantly improved to 37 and 0.96 resp ectively with estimated GFR 56. Continue present Rx. January 17. BUN and creatinine are further improved at 31 and 0.73 respectively with estimated GFR greater than 60. Continue present Rx. Qualifiers: Acute renal failure type: unspecified Qualified Code(s): N17.9 - Acute kidney failure, unspecified (2) Bladder outlet obstruction Current Visit: Yes Status: Acute Assessment and plan: January 16. Continue Alexandre catheter. January 17. Alexandre catheter will be discontinued. (3) Anemia Current Visit: Yes Status: Acute Assessment and plan: January 16. Anemia testing pending. Hemoglobin has decreased to 9.5. January 17. Hemoglobin 10.5 today. Anemia testing showed no factor deficiency. Continue to monitor. Qualifiers: Anemia type: unspecified type Qualified Code(s): D64.9 - Anemia, unspecified (4) Neutrophilic leukocytosis Current Visit: Yes Status: Acute Assessment and plan: January 16. Resolved. Continue IV Flagyl and Cipro with lactobacillus. January 17. WBC further decreased to 7.4 with decreased left shift. Continue present Rx. (5) Dementia Current Visit: No Status: Acute Assessment and plan: January 16. TSH and B12 levels were normal November 2017. Qualifiers: Dementia type: Alzheimer's disease Alzheimer's disease onset: unspecified onset Dementia behavioral disturbance: without behavioral disturbance Qualified Code(s): G30.9 - Alzheimer's disease, unspecified; F02.80 - Dementia in other diseases classified elsewhere without behavioral disturbance (6) Hypertension Current Visit: No Status: Chronic Assessment and plan: January 16. Continue Lopressor 25 mg twice a day January 17. Blood pressure borderline low. Discontinue Lopressor and monitor. Qualifiers: Hypertension type: essential hypertension Qualified Code(s): I10 - Essential (primary) hypertension (7) Hypernatremia Current Visit: No Status: Acute Assessment and plan: January 16. Sodium is decreased to 163. Continue present Rx. Recheck labs in a.m. January 17. Sodium further decreased to 153. Continue IV fluids, recheck labs in a.m. (8) Colitis Current Visit: Yes Status: Acute Assessment and plan: January 16. Significant stool output from enema. Continue IV antibiotics. KUB will be ordered. January 17. KUB showed improvement. She will be given MOM and Dulcolax tablets today (9) Fecal impaction in rectum Current Visit: Yes Status: Acute Assessment and plan: January 16. As above (10) Altered mental status Current Visit: No Status: Acute Assessment and plan: January 17. Somnolence not significantly changed with rehydration. Klonopin will be held Qualifiers: Altered mental status type: somnolence Qualified Code(s): R40.0 - Somnolence - Subjective Interval history: January 16. No new problems have arisen. January 17. No new problems have arisen. - Constitutional Vitals: Temp Pulse Resp BP Pulse Ox 96.1 F L 69 16 109/45 97 01/17/19 06:49 01/17/19 06:49 01/17/19 06:49 01/17/19 06:49 01/17/19 06:49 Exam: She is resting comfortably in bed and appears in no acute distress. She does not awaken to voice or light touch. Heart is regular without murmurs gallops or ectopics. Lungs are clear anteriorly. Extremities show no edema. I reviewed her medications and lab results. Internal Medicine: Result - Labs CBC & Chem 7: 01/17/19 07:18 01/17/19 07:18 Labs: Short CBC 01/17/19 Range/Units 07:18 WBC 7.4 (4.3-11.1) K/mcL Hgb 10.5 L (11.5-15.4) g/dL Hct 35.3 (35.3-44.9) % Plt Count 159 (140-400) K/mcL Neutrophils # 5.2 (1.6-8.9) K/mcL BMP 01/17/19 07:18 Sodium 153 H D Potassium 4.1 Chloride 126 H Carbon Dioxide 21 L BUN 31 H Creatinine 0.73 Glucose 131 H Calcium 8.6 - ABG Interpretation ABG results: PT/INR, D-dimer PT 14.7 Seconds (9.4-12.1) H 01/14/19 14:40 - Impressions Impressions KUB X-Ray 01/16/19 10:09 IMPRESSION: Persistent fecal impaction slightly improved from the prior exam. D/ / Andriy Villegas MD / Andriy Villegas MD Interpreting Provider: Andriy Villegas MD Consult Discharge Plan - Plan Referrals: Nick Moffett MD [Primary Care Provider] - 1 week
[2019-01-17] MEDS ORDERED: MOM Conc 10 ML UD.LIQ PO ONE (09:47)
[2019-01-17] MEDS: Acetaminophen 325 MG TABLET PO PRN (10:23)
[2019-01-17] MEDS: Divalproex Sodium 125 MG CAPSULE PO SCH ×3 (10:23→22:21)
[2019-01-17] MEDS: Lactobacillus 1 EACH CAP.SPRINK PO SCH ×2 (10:23→22:21)
[2019-01-17] MEDS: clonazePAM 0.5 MG TABLET PO SCH (10:24)
[2019-01-17] MEDS: metroNIDAZOLE 500 MG TABLET PO SCH (17:17)
[2019-01-18] MEDS: metroNIDAZOLE 500 MG TABLET PO SCH ×3 (00:59→16:32)
[2019-01-18 05:47] LABS: Basophils # 0.1 K/mcL (0.0-0.2); Hematocrit 32.8 % (35.3-44.9); Hemoglobin 10.3 g/dL (11.5-15.4); Mean Corpuscular HGB Conc 31.4 g/dL (31.6-35.5); Mean Corpuscular Hemoglobin 29.6 pg (28.0-33.3); Mean Corpuscular Volume 94.3 fL (83.0-100.0); Mean Platelet Volume 10.6 fL (9.4-12.4); Platelet Count 161 K/mcL (140-400); Red Blood Count 3.48 M/mcL (3.82-4.97); Red Cell Distribution Width 13.3 % (11.5-14.5); White Blood Count 5.8 K/mcL (4.3-11.1)
[2019-01-18 06:13] LABS: BUN/Creatinine Ratio 32 (6-26); Blood Urea Nitrogen 22 mg/dL (8-23); Calcium 8.3 mg/dL (8.6-10.3); Carbon Dioxide 25 mEq/L (23-29); Chloride 119 mEq/L (98-107); Glucose 141 mg/dL (70-105); Osmolality,Calculated 310 (280-300); Potassium 4.1 mEq/L (3.5-5.1); Sodium 147 mEq/L (136-145); eGFR For African Americans > 60 (> 60); eGFR For Non-African Americans > 60 (> 60)
[2019-01-18 06:29] LABS: Anisocytosis 1+ (Not Present); Eosinophils # 0.5 K/mcL (0.0-0.6); Monocytes # 0.7 K/mcL (0.0-1.3); Neutrophils # 3.4 K/mcL (1.6-8.9); Reactive Lymphocytes Present (Not Present)
[2019-01-18 06:30] LABS: Platelet Estimate Normal (Normal)
[2019-01-18] MEDS: Lactobacillus 1 EACH CAP.SPRINK PO SCH ×2 (09:47→20:32)
[2019-01-18] MEDS: Divalproex Sodium 125 MG CAPSULE PO SCH ×3 (09:48→20:32)
[2019-01-18] MEDS: *HR* Enoxaparin 40 MG/0.4 ML SYRINGE SQ SCH ×2 (11:41→14:53)
[2019-01-18] MEDS: Potassium Chloride 20 MEQ in D5% in Water 1,000 ML IVC SCH (14:27)
--- NOTE | 2019-01-18 15:18 | Internal Med Progress Note ---
Date of Encounter: 01/18/19 Time of Encounter: 10:00 - Assessment and plan (1) Acute renal failure Current Visit: Yes Status: Acute Assessment and plan: January 16. BUN and creatinine have significantly improved to 37 and 0.96 resp ectively with estimated GFR 56. Continue present Rx. January 17. BUN and creatinine are further improved at 31 and 0.73 respectively with estimated GFR greater than 60. Continue present Rx. January 18. BUN and creatinine have normalized at 22 and 0.68 respectively. Continue present Rx. Anticipate discharge to SNF tomorrow if stable. Qualifiers: Acute renal failure type: unspecified Qualified Code(s): N17.9 - Acute kidney failure, unspecified (2) Bladder outlet obstruction Current Visit: Yes Status: Acute Assessment and plan: January 16. Continue Alexandre catheter. January 17. Alexandre catheter will be discontinued. (3) Anemia Current Visit: Yes Status: Acute Assessment and plan: January 16. Anemia testing pending. Hemoglobin has decreased to 9.5. January 17. Hemoglobin 10.5 today. Anemia testing showed no factor deficiency. Continue to monitor. Qualifiers: Anemia type: unspecified type Qualified Code(s): D64.9 - Anemia, unspecified (4) Neutrophilic leukocytosis Current Visit: Yes Status: Acute Assessment and plan: January 16. Resolved. Continue IV Flagyl and Cipro with lactobacillus. January 17. WBC further decreased to 7.4 with decreased left shift. Continue present Rx. Ala. WBC normal at 5.8 with no left shift. Continue IV Flagyl and Cipro with lactobacillus. (5) Dementia Current Visit: No Status: Acute Assessment and plan: January 16. TSH and B12 levels were normal November 2017. Qualifiers: Dementia type: Alzheimer's disease Alzheimer's disease onset: unspecified onset Dementia behavioral disturbance: without behavioral disturbance Qualified Code(s): G30.9 - Alzheimer's disease, unspecified; F02.80 - Dementia in other diseases classified elsewhere without behavioral disturbance (6) Hypertension Current Visit: No Status: Chronic Assessment and plan: January 16. Continue Lopressor 25 mg twice a day January 17. Blood pressure borderline low. Discontinue Lopressor and monitor. Qualifiers: Hypertension type: essential hypertension Qualified Code(s): I10 - Essential (primary) hypertension (7) Hypernatremia Current Visit: No Status: Acute Assessment and plan: January 16. Sodium is decreased to 163. Continue present Rx. Recheck labs in a.m. January 17. Sodium further decreased to 153. Continue IV fluids, recheck labs in a.m. January 18. Sodium has further decreased to 147. Continue IV fluids and monitor. (8) Colitis Current Visit: Yes Status: Acute Assessment and plan: January 16. Significant stool output from enema. Continue IV antibiotics. KUB will be ordered. January 17. KUB showed improvement. She will be given MOM and Dulcolax tablets today January 18. KUB today shows small amount of stool in the rectum and left colon decreased from January 16. MOM will be scheduled every other day to maintain adequ ate stool output. (9) Fecal impaction in rectum Current Visit: Yes Status: Acute Assessment and plan: January 16. As above (10) Altered mental status Current Visit: No Status: Acute Assessment and plan: January 17. Somnolence not significantly changed with rehydration. Klonopin will be held January 18. Mental status minimally improved. Remain off Klonopin and reassess in a.m. Qualifiers: Altered mental status type: somnolence Qualified Code(s): R40.0 - Somnolence - Subjective Interval history: January 16. No new problems have arisen. January 17. No new problems have arisen. January 18. No new problems have arisen. She went to [facility] for MBS yesterday but was too obtunded to participate. - Constitutional Vitals: Temp Pulse Resp BP Pulse Ox 97.0 F L 70 16 110/53 98 01/18/19 14:24 01/18/19 14:24 01/18/19 14:24 01/18/19 14:24 01/18/19 14:24 Exam: She is resting comfortably in bed. Her eyes are open but she is nonverbal. Abdomen is soft and nontender. Extremities show no pitting edema. I reviewed her medications and lab results. Internal Medicine: Result - Labs CBC & Chem 7: 01/18/19 05:40 01/18/19 05:40 Labs: Short CBC 01/18/19 Range/Units 05:40 WBC 5.8 (4.3-11.1) K/mcL Hgb 10.3 L (11.5-15.4) g/dL Hct 32.8 L (35.3-44.9) % Plt Count 161 (140-400) K/mcL Neutrophils # 3.4 (1.6-8.9) K/mcL BMP 01/18/19 05:40 Sodium 147 H Potassium 4.1 Chloride 119 H Carbon Dioxide 25 BUN 22 Creatinine 0.68 Glucose 141 H Calcium 8.3 L - ABG Interpretation ABG results: PT/INR, D-dimer PT 14.7 Seconds (9.4-12.1) H 01/14/19 14:40 - Impressions Impressions Videofluoroscopic Swallow 01/17/19 09:47 IMPRESSION: Incomplete exam due to patient condition. Please see separate speech pathology report for full discussion of findings and recommendations. D/ / 01/17/2019 13:29:43 Andrez Ho MD / betzy Interpreting Provider: Andrez Ho MD X-Ray 01/18/19 10:02 IMPRESSION: Decreased rectal stool burden. No evidence of bowel obstruction. D/ / 01/18/2019 10:51:54 Luis Carlos Hernandez MD / blane Interpreting Provider: Luis Carlos Hernandez MD Consult Discharge Plan - Plan Referrals: Nick Moffett MD [Primary Care Provider] - 1 week
[2019-01-18] MEDS ORDERED: MOM Conc 10 ML UD.LIQ PO SCH (15:30)
[2019-01-19] MEDS: metroNIDAZOLE 500 MG TABLET PO SCH ×2 (00:12→08:08)
[2019-01-19] MEDS: Potassium Chloride 20 MEQ in D5% in Water 1,000 ML IVC SCH (03:35)
[2019-01-19] MEDS: *HR* Enoxaparin 40 MG/0.4 ML SYRINGE SQ SCH (05:43)
[2019-01-19 06:39] VITALS: BP 127/57
[2019-01-19 06:45] LABS: Basophils # 0.1 K/mcL (0.0-0.2); Basophils % 1.5 %; Eosinophils # 0.2 K/mcL (0.0-0.6); Eosinophils % 4.2 %; Hematocrit 34.4 % (35.3-44.9); Hemoglobin 10.7 g/dL (11.5-15.4); Immature Granulocytes % 5.9 % (0-4); Lymphocytes # 1.2 K/mcL (0.6-4.6); Lymphocytes % 21.5 %; Mean Corpuscular HGB Conc 31.1 g/dL (31.6-35.5); Mean Corpuscular Hemoglobin 30.1 pg (28.0-33.3); Mean Corpuscular Volume 96.9 fL (83.0-100.0); Mean Platelet Volume 11.2 fL (9.4-12.4); Monocytes # 0.4 K/mcL (0.0-1.3); Monocytes % 7.2 %; Neutrophils # 3.3 K/mcL (1.6-8.9); Platelet Count 152 K/mcL (140-400); Red Blood Count 3.55 M/mcL (3.82-4.97); Red Cell Distribution Width 13.2 % (11.5-14.5); Segmented Neutrophils % 59.7 %; White Blood Count 5.5 K/mcL (4.3-11.1)
[2019-01-19 07:03] LABS: Platelet Estimate Normal (Normal)
[2019-01-19 07:16] LABS: BUN/Creatinine Ratio 16 (6-26); Blood Urea Nitrogen 11 mg/dL (8-23); Calcium 8.4 mg/dL (8.6-10.3); Carbon Dioxide 27 mEq/L (23-29); Chloride 113 mEq/L (98-107); Glucose 129 mg/dL (70-105); Osmolality,Calculated 295 (280-300); Sodium 142 mEq/L (136-145); eGFR For African Americans > 60 (> 60); eGFR For Non-African Americans > 60 (> 60)
[2019-01-19] MEDS: Lactobacillus 1 EACH CAP.SPRINK PO SCH (08:08)
[2019-01-19] MEDS: Divalproex Sodium 125 MG CAPSULE PO SCH (08:08)
--- NOTE | 2019-01-19 09:55 | Discharge Summary ---
Orders not resulted at time of discharge: Pending orders 01/14/19 14:40 Culture,Blood [BC] Stat 01/17/19 XR failed procedure [XR] Routine Date of Encounter: 01/19/19 Time of Encounter: 09:46 - Discharge Diagnosis (1) Acute renal failure Priority: Primary Status: Resolved Qualifiers: Acute renal failure type: unspecified Qualified Code(s): N17.9 - Acute kidney failure, unspecified (2) Bladder outlet obstruction Priority: Secondary Status: Acute (3) Anemia Priority: Secondary Status: Acute Qualifiers: Anemia type: unspecified type Qualified Code(s): D64.9 - Anemia, unspecified (4) Neutrophilic leukocytosis Priority: Secondary Status: Resolved (5) Dementia Priority: Secondary Status: Chronic Qualifiers: Dementia type: Alzheimer's disease Alzheimer's disease onset: unspecified onset Dementia behavioral disturbance: without behavioral disturbance Qualified Code(s): G30.9 - Alzheimer's disease, unspecified; F02.80 - Dementia in other diseases classified elsewhere without behavioral disturbance (6) Hypertension Priority: Secondary Status: Chronic Qualifiers: Hypertension type: essential hypertension Qualified Code(s): I10 - Essential (primary) hypertension (7) Hypernatremia Priority: Secondary Status: Resolved (8) Colitis Priority: Secondary Status: Acute (9) Fecal impaction in rectum Priority: Secondary Status: Resolved (10) Altered mental status Priority: Secondary Status: Acute Qualifiers: Altered mental status type: somnolence Qualified Code(s): R40.0 - Somnolence Hospital course: Ms. Arroyo is a 83 year old female who was brought to emergency room from a SNF after family noted rectal bleeding. She was evaluated in emergency room and appeared to have abdominal discomfort. Abdominal/pelvic CT showed fecal impaction with a large amount of retained rectal stool with wall thickening and adjacent inflammatory changes concerning for stercoral colitis. There was bilateral hydronephrosis and hydroureter with moderate bladder distention suggesting bladder outlet obstruction. A Alexandre catheter was inserted and she was admitted to [facility] for ongoing care needs. Initial orders were written by the emergency room physician. I saw her on January 15 and performed the history and physical. IV fluids were given and azotemia resolved with BUN and creatinine decreasing to 11 and 0.69 respectively by day of discharge with estimated GFR> 60. A Alexandre catheter was inserted to relieve bladder outlet obstruction. Fecal disimpaction was accomplished with medication. Alexandre catheter was removed following disimpaction and she had satisfactory spontaneous voiding. She was started on IV Cipro and Flagyl in emergency room for possible colitis. She had no significant colonic blood loss. WBC and left shift normalized by the third hospital day. She will not continue antibiotics at discharge. Anemia testing showed iron 37, transferrin saturation 35%, transferrin 76, ferritin 773, B12 1063, and folate 17.8. Hemoglobin was stable at 10.7 on day of discharge. Oral intake was generally poor through her hospital stay. Klonopin was discontinued to allow improved state of alertness. An MBS was attempted but could not be performed because of somnolence. Further evaluation can be done at the SNF if she does not improve and family wishes further intervention. She will return to the SNF today in follow with her PCP Dr. Moffett. - Time Spent with Patient Total time spent providing and/or coordinating discharge services: - Discharge Medications Prescriptions: New Divalproex Sodium [Depakote Sprinkle] 125 mg PO BID cap.sprink MOM Conc [MILK OF MAGNESIA conc] 10 ml PO Q48H ud.liq Continued Acetaminophen [Tylenol] 650 mg PO Q6HR PRN PRN Reason: Pain Discontinued Metoprolol [Lopressor] 25 mg PO BID Divalproex Sodium [Depakote] 125 mg PO TID clonazePAM [Clonazepam] 0.5 mg PO HS clonazePAM [Clonazepam] 0.25 mg PO BID Ciprofloxacin HCl [Cipro] 500 mg PO BID #20 tablet Home Medications: Acetaminophen [Tylenol] 650 mg PO Q6HR PRN 01/11/19 [History] Divalproex Sodium [Depakote Sprinkle] 125 mg PO BID cap.sprink 01/19/19 [Rx] MOM Conc [MILK OF MAGNESIA conc] 10 ml PO Q48H ud.liq 01/19/19 [Rx] Allergies/Adverse Reactions: Allergy/AdvReac Type Severity Reaction Status Date / Time Penicillins [PCN] Allergy Anaphylaxis Verified 01/11/19 22:57 Date of admission: 01/15/19 11:52 Primary care physician: Nick Moffett MD Consults: 01/14/19 20:01 Consult to Nutrition [CONS] Routine Comment: Consulting Provider: NUTRITION Reason for Dietary Consult: MST Score Consult to Bilingual Teacher Aide [CONS] Routine Reason for SW Consult: from yvonne lew 01/16/19 17:01 Consult to Speech Therapy [CONS] Routine Comment: Evaluate, develop and implement POC Reason for Consult: swallow eval d/t chocking on thin liquids Call Completed: Yes 01/17/19 10:39 Consult to Occupational Therapy [CONS] Routine Comment: Evaluate, develop and implement POC Reason for Consult: weakness Does patient have active BEDREST order?: No Is patient medically & hemodynamically stable?: Yes Patient assessed for mobility or mobilized this visit?: Yes Consult to Physical Therapy [CONS] Routine Comment: Evaluate, develop and implement POC Reason for Consult: weakness Does patient have active BEDREST order?: No Is patient medically & hemodynamically stable?: Yes Patient assessed for mobility or mobilized this visit?: Yes - Constitutional Vitals: Temp Pulse Resp BP Pulse Ox 98.4 F 76 18 127/57 98 01/19/19 06:36 01/19/19 06:36 01/19/19 06:36 01/19/19 06:36 01/19/19 06:36 - Patient Status Disposition: Transfer SNF Condition: Fair - Discharge Instructions Follow Up With: Nick Moffett MD [Primary Care Provider] - 1 week - Diet and Activity Activity: resume usual activities as tolerated Diet: advance to your usual diet
--- NOTE | 2019-01-19 10:03 | Physician Discharge Referral ---
ExtendedCare Referral Info Transfer To: [facility] Provider in Charge: Shamir Provider in Charge after Transfer: PCP Enoch) - Diagnosis (1) Acute renal failure Priority: Primary Status: Resolved (2) Bladder outlet obstruction Priority: Secondary Status: Acute (3) Anemia Priority: Secondary Status: Acute (4) Neutrophilic leukocytosis Priority: Secondary Status: Resolved (5) Dementia Priority: Secondary Status: Chronic (6) Hypertension Priority: Secondary Status: Chronic (7) Hypernatremia Priority: Secondary Status: Resolved (8) Colitis Priority: Secondary Status: Acute (9) Fecal impaction in rectum Priority: Secondary Status: Resolved (10) Altered mental status Priority: Secondary Status: Acute Prognosis: Fair Aware of Diagnosis: Family Aware of Prognosis: Family - Transfer Medications Home Medications: Acetaminophen [Tylenol] 650 mg PO Q6HR PRN 01/11/19 [History] Divalproex Sodium [Depakote Sprinkle] 125 mg PO BID cap.sprink 01/19/19 [Rx] MOM Conc [MILK OF MAGNESIA conc] 10 ml PO Q48H ud.liq 01/19/19 [Rx] Allergies/Adverse Reactions: Allergy/AdvReac Type Severity Reaction Status Date / Time Penicillins [PCN] Allergy Anaphylaxis Verified 01/11/19 22:57 - Respiratory Orders Smoking Cessation: Smoking cessation has been advised. For more information, call the [place] Tobacco Quit Line at 8-734-EAMK-NOW. - Lab Orders Lab Orders: Other (include drug levels w/frequency) (CBC with differential, BMP, BNP peptide in 5 days) - Rehabiliation Orders Rehab Potential: Fair - Diet Orders Mechanical Soft CERTIFICATION: I certify that the transfer of the above named patient to an Extended Care Facility is necessary for the continuing treatment of the diagnosis listed. The above information is true and accurate reflection of patient's current condition. Confidential - Redisclosure prohibited without a patient's written consent.
[2019-01-19] MEDS ORDERED: MOM Conc 10 ML UD.LIQ PO SCH (15:30)
== END 2019-01-19 11:00 | DRG 683 ==
LOC: INPPIK 13:51 → EMEROOPIK 13:51 → INPPIK 18:54
PROVIDERS: ADMIT Internal Medicine; ATTEND Internal Medicine